=== PATIENT | female | born 1970 | race Caucasian/White ===

== ENCOUNTER → 2017-01-03 | Outpatient (CLI) | payer OTHER ==
[~2017-01-03] MED LIST: CLEOCIN HCL300 MG PO; IBUPROFEN 200200 M1 PO; MACRODANTIN50 MG PO; NORCO 5-325 TA1 EACH PO; TYLENOL EX-STR500 M2 PO
== END ==
LOC: RAD 03:47
DX: Z12.31 Encounter for screening mammogram for malignant neoplasm of breast (principal)

== ENCOUNTER → 2021-04-30 | Outpatient (CLI) | payer BC | LOC: BC 04-23 13:27 | PROVIDERS: ATTEND Family Medicine | DX: Z12.31 Encounter for screening mammogram for malignant neoplasm of breast (principal) ==